=== PATIENT | male | born 1965 ===

== ENCOUNTER 2018-04-22 10:46 | Emergency (ER) | payer OTHER ==
[~2018-04-22] VITALS: Ht 167.6 cm; Wt 62.6 kg
== END 2018-04-22 13:32 | disposition home or self-care (01) ==
LOC: ER 10:46
DX: S90.212A Contusion of left great toe with damage to nail, initial encounter (principal); W26.8XXA Contact with other sharp object(s), not elsewhere classified, initial encounter; Y93.89 Activity, other specified; Y92.098 Other place in other non-institutional residence as the place of occurrence of the external cause; Y99.8 Other external cause status

== ENCOUNTER 2020-02-09 20:42 | Emergency (ER) | payer OTHER ==
[~2020-02-09] VITALS: Ht 157.5 cm; Wt 58.5 kg
== END 2020-02-09 21:30 | disposition home or self-care (01) ==
LOC: ER 20:42
DX: S01.02XA Laceration with foreign body of scalp, initial encounter (principal); W06.XXXA Fall from bed, initial encounter; Y93.89 Activity, other specified; Y92.013 Bedroom of single-family (private) house as the place of occurrence of the external cause; Y99.8 Other external cause status

== ENCOUNTER 2020-02-16 07:55 | Emergency (ER) | payer OTHER ==
[~2020-02-16] VITALS: Ht 167.6 cm; Wt 63.5 kg
== END 2020-02-16 08:37 | disposition home or self-care (01) ==
LOC: ER 07:55
DX: Z48.02 Encounter for removal of sutures (principal)